=== PATIENT | female | born 1960 | race Caucasian/White ===

== ENCOUNTER 2016-08-30 08:50 | Emergency (ER) | payer OTHER ==
--- NOTE | ~2016-08-30 | CR58 ---
[facility] A Service of [facility] RADIOLOGY TEXT RESULTS PATIENT: DYLON BRAY LOCATION: [facility] : 56 UNIT #: [id number] AGE: [address]: Angely Dudley APRN SEX: F ORDER DR: [id number] [facility] [address] [place], [place] [address] [id number] E MR#: [id number] Acc #: [id number] NAME: DYLON BRAY : 1960 SEX: F STUDY DATE/TIME: 08/30/2016 8:02 UNIT: [facility] ROOM: STUDY DESCRIPTION: CR Cervical Spine 2 or 3 Views Attending Physician: Angely Dudley A.P.R.N. Ordering Physician: Ed Doc Rosanne Ortiz Primary Care Physician: Primary Care Physician No MEDICAL IMAGING REPORT This report is preliminary unless electronic signature is present EXAM Cervical spine series. HISTORY Left-sided neck pain, nose laceration. Fell 3 days ago. COMMENT AP, lateral, odontoid views of the cervical spine reviewed. Cervical vertebral bodies are seen from C1 to top of T1. Endplate spondylosis at C5-6 and C6-7 with loss of disc height. Subtle degenerative retrolisthesis C5 on C6 and C6 on C7 about 2 mm, each. Multiple-level facet arthritis most apparent at C7-T1. The prevertebral soft tissues are normal. No acute appearing cervical spine fracture is suspected. IMPRESSION 1. No acute fracture or traumatic malalignment. 2. Multiple-level cervical degenerative disease most apparent at C5-6 and C6-7. Dictated by... Inna Sarmiento M.D. THIS IS AN ELECTRONICALLY VERIFIED REPORT Inna Sarmiento M.D. at 08/31/2016 11:37 AM GERMAIN/lucina TD: 08/30/2016 19:10 JOB #: [id number] MEDICAL IMAGING REPORT COPY
--- NOTE | ~2016-08-30 | CT71 ---
[facility] A Service of [facility] RADIOLOGY TEXT RESULTS PATIENT: DYLON BRAY LOCATION: [facility] : 56 UNIT #: [id number] AGE: [address]: Angely Dudley APRN SEX: F ORDER DR: [id number] [facility] [address] [place], [place] [address] [id number] E MR#: [id number] Acc #: [id number] NAME: DYLON BRAY : 1960 SEX: F STUDY DATE/TIME: 08/30/2016 8:27 UNIT: [facility] ROOM: STUDY DESCRIPTION: CT Head Wo Contrast Attending Physician: Angely Dudley A.P.R.N. Ordering Physician: Ed Beck Ortiz M.D. Primary Care Physician: Primary Care Physician No MEDICAL IMAGING REPORT This report is preliminary unless electronic signature is present EXAM Head CT without HISTORY Fell on Wednesday with a nose injury. History of hypertension. COMMENT Routine noncontrast head CT is reviewed. See the separate facial CT dictation. There is no displaced calvarial fracture. Mild vascular calcifications at the base of the brain. This CT exam was performed with one or more of the following radiation dose reduction techniques: Automatic exposure control, adjustment of mA and/or kV according to patient size, and iterative reconstruction. There is no evidence for acute intracranial hemorrhage or extraaxial fluid collection. The ventricles are normal in size and configuration, and the goodman-white junction is within the range of normal for age group. Minimal periventricular white matter low attenuation seen likely due to small vessel disease. No acute cortical infarct is suspected. The basilar cisterns are patent and there is no intracranial mass effect. Visualized paranasal sinuses and mastoid air cells are clear. IMPRESSION 1. No acute intracranial abnormality. Dictated by... Inna Sarmiento M.D. THIS IS AN ELECTRONICALLY VERIFIED REPORT Inna Sarmiento M.D. at 08/31/2016 11:38 AM [facility] A Service of [facility] RADIOLOGY TEXT RESULTS PATIENT: DYLON BRAY [id number] : 56 UNIT #: [id number] AGE: [address]: Angely Dudley APRN SEX: F ORDER DR: TD: 08/30/2016 19:37 JOB #: [id number] MEDICAL IMAGING REPORT COPY
--- NOTE | ~2016-08-30 | CT101 ---
[facility] A Service of [facility] RADIOLOGY TEXT RESULTS PATIENT: DYLON BRAY LOCATION: [facility] : 56 UNIT #: [id number] AGE: [address]: Angely Dudley APRN SEX: F ORDER DR: [id number] [facility] [address] [place], [place] [address] [id number] E MR#: [id number] Acc #: [id number] NAME: DYLON BRAY : 1960 SEX: F STUDY DATE/TIME: 08/30/2016 8:24 UNIT: [facility] ROOM: STUDY DESCRIPTION: CT Maxillofacial Area Wo Cont Attending Physician: Angely Dudley A.P.R.N. Ordering Physician: Ed Beck Ortiz M.D. Primary Care Physician: Primary Care Physician No MEDICAL IMAGING REPORT This report is preliminary unless electronic signature is present EXAM CT maxillofacial area without contrast. HISTORY Patient fell Wednesday with a nose injury. COMMENT CT of the facial bones performed in the axial plane without contrast followed by sagittal and coronal reconstructed imaging. There is a separate head CT and please refer to that report. This CT exam was performed with one or more of the following radiation dose reduction techniques: Automatic exposure control, adjustment of mA and/or kV according to patient size, and iterative reconstruction. The mastoid air cells are clear. The anterior-inferior nasal spine is indistinct but no displaced fractures appreciated. Subtle deformity of nasal bones directed towards the left side could be acute or chronic. I suspect it is more chronic but please correlate with physical exam findings. There is rightward anterior nasal septal deviation, probably also chronic. Otherwise, there is nothing to suggest acute appearing facial bone fracture. The temporomandibular joints are located. The patient is partially edentulous. There is a mucous retention cyst or polyp in the left maxillary sinus but there is no sinus air-fluid level. No orbital fractures suspected. IMPRESSION 1. There is some deformity of the nasal bones displaced towards the left side but I suspect this is chronic rather than acute. Please correlate with the physical findings. There is rightward anterior nasal septal deviation, probably also chronic. Otherwise, no acute appearing facial bone fracture is suspected. There is some indistinctness at the anterior inferior nasal spine, but again no STS. [facility] A Service of [facility] RADIOLOGY TEXT RESULTS PATIENT: DYLON BRAY LOCATION: [facility] : 56 UNIT #: [id number] AGE: [address]: Angely Dudley APRN SEX: F ORDER DR: displaced fractures seen. The temporomandibular joints are located. There is no sinus air-fluid level. There is a mucous retention cyst or polyp in the left maxillary sinus. Dictated by... Inna Sarmiento M.D. THIS IS AN ELECTRONICALLY VERIFIED REPORT Inna Sarmiento M.D. at 08/31/2016 11:38 AM GERMAIN/lucina TD: 08/30/2016 19:32 JOB #: [id number] MEDICAL IMAGING REPORT COPY
[~2016-08-30 08:50] MED LIST: AMOXICILLIN500 M1 PO; AMOXIL500 M1 PO; ANTIVERT PO; DICLOFENAC PO; DITROPAN; FLEXERIL PO; HYDROCODONE BI473 M1 PO; METOPROLOL SUCC25 MG PO; METOPROLOL TAR25 MG PO; MOBIC; NAPROXEN PO; PAXIL; PEN-VEE K PO; PRILOSEC; TRAZODONE; ULTRAM PO; VICODIN 5/1 TAB 5/50 PO
== END 2016-08-30 09:15 | disposition home or self-care (01) ==
LOC: CED 08:50
DX: S06.0X9A Concussion with loss of consciousness of unspecified duration, initial encounter (principal); S00.33XA Contusion of nose, initial encounter; Z23 Encounter for immunization; F17.210 Nicotine dependence, cigarettes, uncomplicated; W01.0XXA Fall on same level from slipping, tripping and stumbling without subsequent striking against object, initial encounter; Y92.410 Unspecified street and highway as the place of occurrence of the external cause; F32.9 Major depressive disorder, single episode, unspecified
CPT/HCPCS: 70450; 70486; 72040; 90471; 90715; 99284